=== PATIENT | male | born 1985 | race American Indian/Alaskan Native ===

== ENCOUNTER 2019-04-09 09:13 | Emergency (ER) | payer SELFPAY ==
[2019-04-09 09:50] LABS: Basophils # (Auto) 0.1 K/mm3 (0.0-0.1); Basophils % (Auto) 0.9 % (0.0-1.8); Eosinophils % (Auto) 0.4 % (0.0-4.3); Hemoglobin 15.2 gm/dl (11.8-15.2); Lymphocytes # (Auto) 2.2 K/mm3 (1.2-5.4); Mean Corpuscular HGB Conc 35 % (32-34); Mean Corpuscular Volume 91 fl (84-94); Monocytes # (Auto) 0.7 K/mm3 (0.0-0.8); Monocytes % (Auto) 8.8 % (0.0-7.3); Platelet Count 258 K/mm3 (140-440); Red Blood Count 4.86 M/mm3 (3.65-5.03); Red Cell Distribution Width 14.2 % (13.2-15.2)
--- NOTE | 2019-04-09 10:01 | XRay Report ---
CHEST 1 VIEW INDICATION: Chest Pain. Hemoptysis, fever for 4 days COMPARISON: None FINDINGS: Support devices: None. Heart: Within normal limits. Lungs/Pleura: No acute air space or interstitial disease. Additional findings: None. IMPRESSION: No acute findings. Signer Name: Frankie Isaac Jr, MD Signed: 04/09/2019 9:57 AM Workstation Name: [id number]
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
[2019-04-09 10:16] LABS: BUN/Creatinine Ratio 10; Blood Urea Nitrogen 8 mg/dL (9-20); Calcium 8.8 mg/dL (8.4-10.2); Hemolysis Index 10
[2019-04-09] MEDS ORDERED: KETOROLAC 30 MG/1 ML INJ IV ONE (10:29)
[2019-04-09] MEDS ORDERED: ONDANSETRON 4 MG/2 ML INJ IV STA (10:29)
[2019-04-09] MEDS ORDERED: POTASSIUM CHLORIDE ER 20 MEQ TAB PO ONE (10:29)
[2019-04-09] MEDS ORDERED: diphenhydrAMINE 25 MG/10 ML ORAL LIQUID PO ONE (11:06)
[2019-04-09] MEDS ORDERED: ALUM-MAG HYDROXIDE-SIMETHICONE 200-200-20MG/5ML ORAL LIQD 30 ML PO ONE (11:06)
[2019-04-09] MEDS ORDERED: LIDOCAINE VISCOUS 2% 15 ML ORAL LIQD PO ONE (11:06)
[2019-04-09] MEDS ORDERED: LORazepam 2 MG/ML VIAL IV STA (11:07)
[2019-04-09 12:06] VITALS: BP 138/76
== END 2019-04-09 15:53 | disposition left against medical advice (07) ==
LOC: ED 09:13
DX: R07.89 Other chest pain (principal); R05 Cough; R50.9 Fever, unspecified; E78.1 Pure hyperglyceridemia
CPT/HCPCS: 36415; 71045; 80048; 83690; 84484; 85025; 85379; 93005; 93010; 96374; 96375; 99285; J1885; J2060; J2405; Q0163

== ENCOUNTER 2019-05-21 03:49 | Emergency (ER) | payer SELFPAY ==
[2019-05-21 04:18] LABS: Basophils % (Auto) 0.2 % (0.0-1.8); Eosinophils # (Auto) 0.1 K/mm3 (0.0-0.4); Eosinophils % (Auto) 1.3 % (0.0-4.3); Hematocrit 42.3 % (35.5-45.6); Hemoglobin 14.9 gm/dl (11.8-15.2); Lymphocytes # (Auto) 3.4 K/mm3 (1.2-5.4); Lymphocytes % (Auto) 32.8 % (13.4-35.0); Mean Corpuscular HGB Conc 35 % (32-34); Mean Corpuscular Volume 88 fl (84-94); Monocytes # (Auto) 0.6 K/mm3 (0.0-0.8); Monocytes % (Auto) 5.6 % (0.0-7.3); Platelet Count 364 K/mm3 (140-440); Red Blood Count 4.82 M/mm3 (3.65-5.03); Red Cell Distribution Width 13.7 % (13.2-15.2)
[2019-05-21 04:38] LABS: BUN/Creatinine Ratio 6; Blood Urea Nitrogen 4 mg/dL (9-20); Calcium 9.6 mg/dL (8.4-10.2); Hemolysis Index 21
[2019-05-21 04:57] LABS: Bilirubin,Urine NEG (Negative); Blood,Urine NEG (Negative); Color,Urine Colorless (Yellow); Protein,Urine <15 mg/dL mg/dL (Negative); Urobilinogen,Urine < 2.0 mg/dL (<2.0)
[2019-05-21 05:03] LABS: Amphetamine Screen,Urine PRESUMPTIVE NEGATIVE; Benzodiazepines Screen,Urine PRESUMPTIVE NEGATIVE; Cannabinoid Screen,Urine PRESUMPTIVE NEGATIVE; Methadone Screen,Urine PRESUMPTIVE NEGATIVE; Opiate Screen,Urine PRESUMPTIVE NEGATIVE
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
[2019-05-21 05:17] LABS: Cocaine Screen,Urine PRESUMPTIVE POSITIVE
--- NOTE | 2019-05-21 07:33 | Consultation ---
History of Present Illness - Reason for Consult Consult date: 05/21/19 Reason for consult: Initial Psychiatric Evaluation - Chief Complaint Chief complaint: Patient is asleep. - History of Present Psychiatric Illness Patient is a 34-year-old -Romanian male presents to the emergency department via EMS from a local bar for a mental health evaluation after the patient was found combative, belligerent. Per record at one point the patient admitted to doing "ecstasy." He also admitted to alcohol consumption this evening. The patient denies any medical or psychiatric history. Today the patient is asleep. Several attempts were made to assess patient but he refuses to awake or have vital signs taken. Medications and Allergies Allergies Allergy/AdvReac Type Severity Reaction Status Date / Time No Known Allergies Allergy Verified 05/21/19 04:02 Home Medications Medication Instructions Recorded Confirmed Last Taken Type No Known Home Medications [No 05/21/19 05/21/19 Unknown History Reported Home Medications] Mental Status Exam - Vital signs Last Vital Signs Temp 97.6 F 05/21/19 06:06 Pulse 84 05/21/19 06:06 Resp 16 05/21/19 06:06 BP 131/71 05/21/19 06:06 Pulse Ox 98 05/21/19 06:06 - Exam Narrative exam: Unable to assess patient's mental status exam due to patient's condition. Results Result Diagrams: 05/21/19 04:03 05/21/19 04:03 Abnormal lab results 05/21/19 05/21/19 05/21/19 Range/Units 04:03 04:03 04:03 MCHC 35 H (32-34) % Potassium 3.5 L (3.6-5.0) mmol/L BUN 4 L (9-20) mg/dL Creatinine 0.7 L (0.8-1.5) mg/dL Ur Specific [place] (1.003-1.030) Plasma/Serum Alcohol 0.27 H (0-0.07) % 05/21/19 Range/Units 04:15 MCHC (32-34) % Potassium (3.6-5.0) mmol/L BUN (9-20) mg/dL Creatinine (0.8-1.5) mg/dL Ur Specific [place] 1.001 L (1.003-1.030) Plasma/Serum Alcohol (0-0.07) % All other labs normal. Assessment and Plan Assessment and plan: Impression: Cocaine/ Alcohol Use Disorder. Several attempts were made to awake patient but he refuses. Recommendation/Plan: 1. Continue 1013. 2. Will reassess in 24 hours when patient is more coherent.
[2019-05-21] MEDS ORDERED: diphenhydrAMINE 50 MG/ML VIAL ONE ×2 (10:00→17:45)
[2019-05-21] MEDS ORDERED: HALOPERIDOL LACTATE 5 MG/1 ML INJ ONE (10:01)
[2019-05-21] MEDS ORDERED: LORazepam 2 MG/ML VIAL ONE ×2 (10:01→17:45)
[2019-05-21] MEDS ORDERED: diphenhydrAMINE 50 MG/ML VIAL IM ONE (10:38)
[2019-05-21] MEDS ORDERED: HALOPERIDOL LACTATE 5 MG/1 ML INJ IM ONE (10:38)
[2019-05-21] MEDS ORDERED: LORazepam 2 MG/ML VIAL IM ONE (10:39)
[2019-05-21] MEDS ORDERED: ZIPRASIDONE MESYLATE 20 MG VIAL IM ONE ×2 (17:46→18:16)
[2019-05-21] MEDS ORDERED: diphenhydrAMINE 50 MG/ML VIAL IV ONE (18:17)
[2019-05-21] MEDS ORDERED: LORazepam 2 MG/ML VIAL IM STA (18:18)
--- NOTE | 2019-05-22 02:42 | Cat Scan Report ---
CT head/brain wo con INDICATION: headache. TECHNIQUE: All CT scans at this location are performed using the following dose modulation technique: Automated exposure control. CONTRAST: None. COMPARISON: None available. FINDINGS: The ventricular system is appropriate in size and configuration without midline shift. Nega tive for stroke or hemorrhage. An arachnoid cyst at the left skull base and cc series 2, image 13) measures 3.9 x 1.9 cm and results in compression upon the brainstem. Imaged portions of the paranasal sinuses are clear other than small mucous retention cyst at the maxi llary sinuses. IMPRESSION: 1. Negative for stroke or hemorrhage. 2. Incidental subarachnoid cyst skull base with brainstem compression. This does not result in ventri cular dilatation. Signer Name: Adam Lawton MD Signed: 05/22/2019 2:38 AM Workstation Name: [id number]
--- NOTE | 2019-05-22 02:51 | Cat Scan Report ---
CT cervical spine wo con INDICATION: MAIN: headache, NECK PAIN. COMBATIVE PATIENT.. TECHNIQUE: All CT scans at this location are performed using the following dose modulation technique: Automated exposure control. CONTRAST: None. COMPARISON: None available. FINDINGS: Satisfactory alignment without bony injury or significant degenerative change. Evaluation o f the soft tissues demonstrates soft tissue injury. An arachnoid cyst at the left skull base results in compression of the brainstem. IMPRESSION: 1. No bony abnormality. 2. Skull base subarachnoid cyst results in brainstem compression. CRITICAL RESULT: Time of Discovery: 1:42 AM Time of Communication: 1:46 AM Licensed Practitioner Receiving Report: Dr. Jennifer Simon Signer Name: Adam Lawton MD Signed: 05/22/2019 2:47 AM Workstation Name: [id number]
[2019-05-22 14:38] VITALS: BP 147/86
[2019-05-22] MEDS ORDERED: IBUPROFEN 600 MG TAB PO PRN (17:35)
[2019-05-22] MEDS ORDERED: BACITRACIN ZINC OINT 28.4 GM TP STA (17:35)
[2019-05-22] MEDS ORDERED: ACETAMINOPHEN 325 MG TAB PO PRN (17:35)
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
[2019-05-22] MEDS ORDERED: cephALEXin 500 MG CAP PO SCH (18:00)
--- NOTE | 2019-05-22 21:04 | Progress Note ---
Subjective - Reason for Consult Consult date: 05/22/19 Reason for consult: follow up - Chief Complaint Chief complaint: "I need to go." Patient is a 34-year-old -Scottish male presented to the emergency department via EMS from a local bar for a mental health evaluation after the patient was found combative, belligerent. Per record at one point the patient admitted to doing "ecstasy." He also admitted to alcohol consumption this evening. The patient denies any medical or psychiatric history. He is now sober and says he needs to leave. He reports his daughter has a birthday republican this evening and he would like to attend. He declines a need for inpatient services to address substance abuse. He denies depressive symptoms, denies anxiety, denies psychotic symptoms, and does not display combative behavior now. Mental Status Exam - Vital signs Last Vital Signs Temp 98.9 F 05/22/19 14:37 Pulse 98 H 05/22/19 14:37 Resp 18 05/22/19 14:37 BP 147/86 05/22/19 14:37 Pulse Ox 100 05/22/19 14:37 - Exam Orientation: time, place, person Affect: normal Mood: other (irritable) Thought content: other (no SI/HI) Thought Process: Intact Perceptions: none Speech: normal rate and pattern Concentration: focused Motor activity: normal Level of consciousness: alert Memory: Intact Interaction: cooperative Assessment and Plan IMpression: No acute safety concerns identified. He is no longer intoxicated/under the i nfluence of illicit substances. He is calm, cooperative, and oriented x 4. He declines additional services. Recommendation: rescind 1013 dispo: outpatient psych services. follow up at [facility] . [place] crisis line. He declines substance abuse services ER MD to address medical needs staffed with Dr. Nath
== END 2019-05-22 23:03 ==
LOC: ED 03:49
DX: F10.929 Alcohol use, unspecified with intoxication, unspecified (principal); F14.10 Cocaine abuse, uncomplicated; F19.959 Other psychoactive substance use, unspecified with psychoactive substance-induced psychotic disorder, unspecified; G93.0 Cerebral cysts
CPT/HCPCS: 36415; 70450; 72125; 80048; 80307; 81001; 85025; 96372; 96374; 99285; J1200; J1630; J2060; J3486; 80320; G0480